=== PATIENT | female | born 1985 | race Caucasian/White ===

== ENCOUNTER 2017-07-07 18:28 | Emergency (ER) | payer OTHER ==
[2017-07-07 18:48] VITALS: BP 116/64
--- NOTE | 2017-07-07 18:55 | UC ---
Throat Pain/Nasal Jose HPI - HPI Summary HPI Summary: 32 y/o female presents to the urgent care c/o sore throat, productive cough for the past 1 week. Pt states symptoms started with nasal congestion and yellowish nasal discharge, Now she has sinus pain and pressure with mild ONTIVEROS, and producing green sputum. Pt has taken Mucinex PO to alleviate cough. Pt denies fever,SOB, chest pain, N/V/.D, abdominal pain. - History of Current Complaint Chief Complaint: UCRespiratory Stated Complaint: ST, COUGH, JOSE Time Seen by Provider: 07/07/17 18:54 Hx Obtained From: Patient Hx Last Menstrual Period: PRESENT ?: No Onset/Duration: Gradual Onset, Lasting Weeks - 1 week, Still Present, Worse Since - yesterday Severity: Moderate Pain Intensity: 5 Pain Scale Used: 0-10 Numeric Cough: Nonproductive Associated Signs & Symptoms: Positive: Dysphagia, Sinus Discomfort, Nasal Discharge - green and brown nasal discharge. Negative: Fever - Epiglottits Risk Factors Epiglottis Risk Factors: Negative - Allergies/Home Medications Allergies/Adverse Reactions: Allergies Allergy/AdvReac Type Severity Reaction Status Date / Time No Known Allergies Allergy Verified 07/07/17 18:48 PMH/Surg Hx/FS Hx/Imm Hx Previously Healthy: Yes Cardiovascular History: Hypertension - Surgical History Surgical History: None - Family History Known Family History: Positive: Cardiac Disease, Respiratory Disease - pneumonia Negative: Hypertension - Social History Occupation: Employed Full-time Lives: With Family Alcohol Use: None Substance Use Type: None Smoking Status (MU): Never Smoked Tobacco Type: Cigarettes Have You Smoked in the Last Year: Yes When Did the Patient Quit Smoking/Using Tobacco: 1 YR AGO - Immunization History Most Recent Influenza Vaccination: NOT CURRENT Review of Systems Constitutional: Negative Skin: Negative Eyes: Negative ENT: Sore Throat, Ear Ache - RT ear pain, Nasal Discharge - green and brown, Sinus Congestion, Sinus Pain/Tenderness Respiratory: Cough - dry Cardiovascular: Negative Gastrointestinal: Negative Genitourinary: Negative Motor: Negative Neurovascular: Negative Musculoskeletal: Negative Neurological: Headache Psychological: Negative Is Patient Immunocompromised?: No All Other Systems Reviewed And Are Negative: Yes Physical Exam Triage Information Reviewed: Yes Vital Signs: Initial Vital Signs Temp 98.0 F 07/07/17 18:43 Pulse 82 07/07/17 18:43 Resp 18 07/07/17 18:43 BP 116/64 07/07/17 18:43 Pulse Ox 97 07/07/17 18:43 - Additional Comments VITAL SIGNS: Reviewed. GENERAL: Patient is a well developed and nourished female who is sitting comfortable in the examining table. Patient is not in any acute respiratory distress. HEAD AND FACE: No signs of trauma. No ecchymosis, hematomas or skull depressions. B/L maxillary and frontal sinus tenderness on percussion and palpation EYES: PERRLA, EOMI x 2, No injected conjunctiva, no nystagmus. No photophobia. EARS: Hearing grossly intact. Ear canals and tympanic membranes are within normal limits. NOSE: edematous, erythemathous nasal mucosa with yellowish nasal discharge MOUTH: Positive pharynx with erythema, noexudates, palatal petechiae. B/L tonsillar enlargement with exudate. Uvula in midline. NECK: Supple, trachea is midline, Positive anterior cervical lymphadenopathy, no JVD, no carotid bruit, no c-spine tenderness, neck with full ROM. CHEST: Symmetric, no tenderness at palpation LUNGS: Clear to auscultation bilaterally. No wheezing or crackles. CVS: Regular rate and rhythm, S1 and S2 present, no murmurs or gallops appreciated. ABDOMEN: Soft, non-tender. No signs of distention. No rebound no guarding, and no masses palpated. Bowel sounds are normal. EXTREMITIES: FROM in all major joints, no edema, no cyanosis or clubbing. NEURO: Alert and oriented x 3. No acute neurological deficits. Speech is normal and follows commands. SKIN: Dry and warm Throat Pain/Nasal Course/Dx - Course Course Of Treatment: 32 y/o female presents to the urgent care c/o sore throat, productive cough for the past 1 week. Pt states symptoms started with nasal congestion and yellowish nasal discharge, Now she has sinus pain and pressure with mild ONTIVEROS, RT ear pain and producing green sputum. Pt has taken Mucinex PO to alleviate cough. Pt denies fever,SOB, chest pain, N/V/.D, abdominal pain.Hx obtained. Pt with sinusitis and pharyngitis on examiantion. Rapid strep ordered , result:negative. Pt with 1 weeks of symptoms getting worse. Pt Rx Amoxicillin PO and flonase nasal spray. Tessalon PO for cough. Discharge instructions explained to Pt. Advised to Return to the clinic or PCP if symptoms do not improve.Pt understood and agreed with plan of care. - Differential Dx/Diagnosis Differential Diagnosis/HQI/PQRI: Influenza, Laryngitis, Mononucleosis, Otitis Media, Pharyngitis, Sinusitis, URI Provider Diagnoses: 1- Acute sinusitis. 2-Cough Discharge - Discharge Plan Condition: Stable Disposition: HOME Prescriptions: Amoxicillin PO (*) [Amoxicillin 875 MG (*)] 875 mg PO BID #20 tab Benzonatate CAP* [Tessalon 100 MG CAP*] 100 mg PO TID PRN #15 cap PRN Reason: Cough Fluticasone NASAL SPRAY 50MCG* [Flonase NASAL SPRAY 50MCG*] 2 spray BOTH NARES DAILY #1 btl Patient Education Materials: Pharyngitis (ED), Sinusitis (ED) Referrals: Non Staff,Doctor [Primary Care Provider] - [facility] [Outside] - If Needed Additional Instructions: 1- Please increase fluid intake and rest. take full course of antibiotic to avoid resistance 2-Use Flonase as directed to help drain fluid. Also buy saline drops to clear sinuses 3-Take Tessalon PO as directed to alleviate cough. Increase fluid intake, eat well, rest 4-Return to the clinic or PCP if symptoms do not improve for further management and treatment
== END 2017-07-07 19:15 | disposition home or self-care (01) ==
LOC: UCCORT 18:28
DX: J01.90 Acute sinusitis, unspecified (principal); R05 Cough; I10 Essential (primary) hypertension
CPT/HCPCS: 87651; 99212; G0463